=== PATIENT | male | born 1985 | race Caucasian/White ===

== ENCOUNTER 2020-05-30 08:50 | Inpatient (IN) | payer BC, OTHER ==
[~2020-05-30] VITALS: Ht 170.2 cm; Wt 78.0 kg
[2020-05-30 09:04] VITALS: BP_SYST 136
[2020-05-30] MEDS ORDERED: MORPHINE 4 MG/ML INJ. SYRINGE IVP ONE (09:30)
[2020-05-30 09:56] LABS: INR 0.9 (0.80-1.20); PROTHROMBIN TIME 9.7 SECS (9.5-12.5)
[2020-05-30 09:57] LABS: CALCIUM 8.8 mg/dL (8.4-11.0); CREATININE 0.8 mg/dL (0.55-1.30); POTASSIUM 4.3 mmol/L (3.5-5.1)
[2020-05-30 10:01] LABS: BASOPHILS % (AUTO) 0.3 % (0.0-2.0); EOSINOPHILS # (AUTO) 0.3 K/uL (0.0-0.4); EOSINOPHILS % (AUTO) 3.4 % (0.0-4.0); HEMATOCRIT 46.1 % (36-54); HEMOGLOBIN 16.1 g/dL (14.0-18.0); LYMPHOCYTES # (AUTO) 2.7 K/uL (1.0-5.5); LYMPHOCYTES % (AUTO) 32.5 % (20.5-51.5); MEAN CORPUSCULAR HEMOGLOBIN 30 pg (27-31); MEAN CORPUSCULAR HGB CONC 35 % (32-36); MEAN CORPUSCULAR VOLUME 86 fL (79.0-98.0); MONOCYTES # (AUTO) 0.6 K/uL (0.0-1.0); MONOCYTES % (AUTO) 7.4 % (1.7-9.3); NEUTROPHILS # (AUTO) 4.7 K/uL (1.8-7.7); NEUTROPHILS % (AUTO) 56.4 % (40.0-70.0); PLATELET COUNT (AUTO) 245 K/uL (130-430); RED BLOOD CELL COUNT(AUTO) 5.36 MIL/uL (4.2-6.2); RED CELL DISTRIBUTION WIDTH 13.1 % (9.0-15.0); WHITE BLOOD COUNT (AUTO) 8.4 K/uL (4.8-10.8)
[2020-05-30 10:02] LABS: ALBUMIN 4.2 g/dL (3.4-4.8); TOTAL BILIRUBIN 0.5 mg/dL (0.0-1.0)
[2020-05-30 11:08] LABS: BILIRUBIN,URINE NEGATIVE (NEGATIVE); BLOOD, URINE 3+ (NEGATIVE); CLARITY/URINE CLEAR (CLEAR); COLOR,URINE YELLOW (YELLOW); GLUCOSE,URINE NEGATIVE (NEGATIVE); KETONES,URINE NEGATIVE (NEGATIVE); LEUKOCYTE ESTERASE ,URINE NEGATIVE (NEGATIVE); NITRITE, URINE NEGATIVE (NEGATIVE); PROTEIN URINE NEGATIVE (NEGATIVE); UROBILINOGEN,URINE 0.2 (0.2-1.0)
[2020-05-30 11:35] LABS: BACTERIA,URINE None Seen /HPF (None Seen); CALCIUM PHOSPHATE CRYSTALS,UR None Seen /HPF (None Seen); TRICHOMONAS,URINE None Seen /HPF (None Seen); WBC,URINE NONE SEEN /HPF (0-3); YEAST,URINE None Seen /HPF (None Seen)
[2020-05-30] MEDS ORDERED: HYDR-3927 PO (14:36)
[2020-05-30] MEDS ORDERED: ONDANSETRON HCL 4 MG/2 ML VIAL IVP PRN ×2 (15:15→18:15)
[2020-05-30] MEDS ORDERED: fentaNYL CITRATE/PF 100 MCG/2 ML AMP IVP PRN ×2 (15:15)
[2020-05-30] MEDS ORDERED: THROMBIN (BOVINE) 5000 UNITS/ VIAL TP ONE (16:36)
[2020-05-30 17:06] VITALS: BP_SYST 123
[2020-05-30] MEDS ORDERED: ACETAMINOPHEN 325 MG TABLET PO PRN (18:15)
[2020-05-30] MEDS ORDERED: methocarbamoL 500 MG TABLET PO PRN (18:15)
[2020-05-30] MEDS ORDERED: HYDROcodone/ACETAMIN 10-325 MG TAB PO PRN ×2 (18:15)
[2020-05-30] MEDS ORDERED: HYDROmorphone 1 MG INJ. 1 MG/ML CARTRIDGE IVP PRN ×2 (18:15)
[2020-05-30] MEDS ORDERED: DIPHENHYDRAMINE HCL 25 MG CAPSULE PO PRN (18:15)
[2020-05-30] MEDS ORDERED: NALOXONE HCL 0.4 MG/ML AMP (NARCAN) IVP PRN ×4 (18:15)
[2020-05-30] MEDS ORDERED: ZOLPIDEM TARTRATE 5 MG TABLET PO PRN (18:15)
[2020-05-30 19:30] VITALS: BP_SYST 138
[2020-05-30] MEDS: DOCUSATE SODIUM 100 MG CAPSULE PO SCH (20:58)
[2020-05-30] MEDS: HYDROmorphone 2 MG/ML VIAL IVP PRN (20:58)
[2020-05-30] MEDS: NACL 0.9% 1,000 ML IV SCH (21:02)
[2020-05-30] MEDS ORDERED: CEFAZOLIN 1 GM IVPB PREMIX 50 ML IV ONE (23:22)
[2020-05-31 00:58] VITALS: BP_SYST 129
[2020-05-31] MEDS: CEFAZOLIN 1 GM IVPB PREMIX 50 ML IV SCH ×3 (01:04→17:45)
[2020-05-31 04:00] VITALS: BP_SYST 132
[2020-05-31] MEDS: NACL 0.9% 1,000 ML IV SCH ×2 (05:26→15:04)
[2020-05-31] MEDS: HYDROmorphone 2 MG/ML VIAL IVP PRN ×4 (06:07→17:50)
[2020-05-31 08:31] VITALS: BP_SYST 131
[2020-05-31] MEDS: DOCUSATE SODIUM 100 MG CAPSULE PO SCH (08:41)
[2020-05-31 12:00] VITALS: BP_SYST 131
[2020-05-31 16:00] VITALS: BP_SYST 138
[2020-05-31 18:09] VITALS: BP_SYST 138
== END 2020-05-31 20:00 | disposition home or self-care (01) | DRG 519 ==
LOC: SED 08:50 → SMU 09:49
PROVIDERS: ADMIT Neurological Surgery; ATTEND Neurological Surgery
PROC: 01NR0ZZ Release Sacral Nerve, Open Approach (ICD-10-PCS; 2020-05-30)
PROC: 0SB40ZZ Excision of Lumbosacral Disc, Open Approach (ICD-10-PCS; principal; 2020-05-30 17:00)
DX: M51.17 Intervertebral disc disorders with radiculopathy, lumbosacral region (principal); G83.4 Cauda equina syndrome; M48.07 Spinal stenosis, lumbosacral region; Z20.822 Contact with and (suspected) exposure to COVID-19
CPT/HCPCS: 36415; 76000; 80053; 81000-TC; 85025; 85610-TC; 85730-TC; 86886; 86900; 86901; 87081; 93005; 97116-GP; J0690; J1170; J2270; J7030; J7120